=== PATIENT | female | born 1945 | race Caucasian/White ===

== ENCOUNTER 2019-08-07 17:43 | Observation (INO) ==
[2019-08-07] MEDS ORDERED: Aspirin 81 MG TAB.CHEW PO ONE (17:53)
[2019-08-07 17:59] LABS: Red Cell Distribution Width 12.6 % (11.5-14.5)
[2019-08-07] MEDS: Nitroglycerin 0.4 MG TAB.SUBL SL PRN ×2 (18:04→18:15)
[2019-08-07 18:08] LABS: Basophils % 0.6 %; Eosinophils # 0.1 K/mcL (0.0-0.6); Immature Granulocytes % 0.3 % (0-4); Immature Platelets 4.1 % (1.1-6.1); Lymphocytes # 2.2 K/mcL (0.6-4.6); Lymphocytes % 31.2 %; Mean Corpuscular Hemoglobin 30.4 pg (28.0-33.3); Mean Corpuscular Volume 86.8 fL (83.0-100.0); Mean Platelet Volume 10.2 fL (9.4-12.4); Monocytes # 0.6 K/mcL (0.0-1.3); Neutrophils # 4.1 K/mcL (1.6-8.9); Platelet Count 206 K/mcL (140-400); Red Blood Count 4.61 M/mcL (3.82-4.97); Segmented Neutrophils % 57.9 %
[2019-08-07] MEDS ORDERED: Isovue-370 500 ML BOTTLE IVP ONE (18:12)
[2019-08-07 18:15] LABS: BUN/Creatinine Ratio 15 (6-26); Blood Urea Nitrogen 15 mg/dL (8-23); Calcium 9.5 mg/dL (8.6-10.3); Carbon Dioxide 26 mEq/L (23-29); Chloride 103 mEq/L (98-107); Glucose 255 mg/dL (70-105); Osmolality,Calculated 298 (280-300); Potassium 3.8 mEq/L (3.5-5.1); Sodium 139 mEq/L (136-145); eGFR For African Americans > 60 (> 60); eGFR For Non-African Americans 56 (> 60)
[2019-08-07 18:16] LABS: Troponin I < 0.03 ng/mL (< 0.04)
[2019-08-07] MEDS ORDERED: 0.9 % Sodium Chloride 500 ML IVC STA (18:22)
[2019-08-08] MEDS ORDERED: Naloxone 0.4 MG/ML INJ IVP PRN (01:25)
[2019-08-08] MEDS ORDERED: D5% in Water 1,000 ML IVC PRN (01:28)
[2019-08-08] MEDS ORDERED: Dextrose Gel 15 GM/37.5 ML TUBE PO PRN ×2 (01:28)
[2019-08-08] MEDS ORDERED: *HR* Dextrose 50 % in Water (Syg) 50 ML SYRINGE IVP PRN (01:28)
[2019-08-08] MEDS: 0.9 % Sodium Chloride 1,000 ML IVC SCH ×2 (03:42→13:20)
[2019-08-08] MEDS: Insulin LISPRO 300 UNITS/3 ML VIAL SQ SCH ×2 (05:56→13:41)
[2019-08-08] MEDS ORDERED: *HR* Heparin 5,000 UNIT/ML VIAL SQ SCH (06:00)
[2019-08-08 08:03] VITALS: BP 134/66
[2019-08-08 08:39] LABS: Hematocrit 36.7 % (35.3-44.9); Mean Corpuscular HGB Conc 33.5 g/dL (31.6-35.5); Mean Corpuscular Hemoglobin 30.1 pg (28.0-33.3); Mean Corpuscular Volume 89.7 fL (83.0-100.0); Mean Platelet Volume 10.2 fL (9.4-12.4); Platelet Count 172 K/mcL (140-400); Red Blood Count 4.09 M/mcL (3.82-4.97); Red Cell Distribution Width 12.5 % (11.5-14.5)
[2019-08-08 08:44] LABS: Hemoglobin 12.3 g/dL (11.5-15.4)
[2019-08-08 08:56] LABS: BUN/Creatinine Ratio 15 (6-26); Blood Urea Nitrogen 11 mg/dL (8-23); Carbon Dioxide 28 mEq/L (23-29); Chloride 104 mEq/L (98-107); Glucose 176 mg/dL (70-105); Osmolality,Calculated 292 (280-300); Potassium 3.8 mEq/L (3.5-5.1); Sodium 139 mEq/L (136-145); eGFR For African Americans > 60 (> 60); eGFR For Non-African Americans > 60 (> 60)
== END 2019-08-08 15:33 | disposition home or self-care (01) ==
LOC: 2ANU 17:43 → EMEROOARM 17:43 → SUATTDRO 19:45 → 2ANU 20:32
PROVIDERS: ADMIT Family Medicine; ATTEND Family Medicine